=== PATIENT | female | born 1945 | race African-American/Black ===

== ENCOUNTER 2018-11-26 21:54 | Inpatient (IN) | payer OTHER ==
--- NOTE | 2018-11-26 22:56 | PDOC ---
History of Present Illness - General Chief Complaint: Edema Stated Complaint: FINGERS SWOLLEN & BLUE - History of Present Illness Initial Comments: The pt is a 73F w/ a reported history of anemia and dementia who presents from [facility] for evaluation of right hand/finger swelling. The history is limited as the pt is unable to provide a history and [facility], no one that is currently present is familiar with the patient. However per their reports, she was noted to have bluish fingers with some swelling. The pt reportedly fell 2 days ago and had a negative pelvis XR at that time. The [facility] supervisor garment manufacturing also reports that the pt was reportedly hypoxic to 90% on RA but is unsure of her baseline. PMH: Anemia, Dementia 11/26/18 22:55 Past History - Past Medical History Allergies/Adverse Reactions: Allergies Allergy/AdvReac Type Severity Reaction Status Date / Time No Known Drug Allergies Allergy Verified 11/27/18 01:37 Home Medications: Ambulatory Orders Cyanocobalamin (Vitamin B-12) [Cyanocobalamin Injection] 1,000 mcg IJ MONTHLY Ferrous Sulfate 325 mg PO DAILY 11/27/18 Mirtazapine 30 mg PO DAILY 11/27/18 Pantoprazole Sodium 40 mg PO DAILY 11/27/18 Polyethylene Glycol 3350 [Gavilax] 8.5 gm PO DAILY 11/27/18 - Suicide/Smoking/Psychosocial Hx Smoking History: Unknown if ever smoked Review of Systems - Review of Systems Able to Perform ROS?: No (2/2 medical condition) *Physical Exam - Vital Signs Last Vital Signs Temp Pulse Resp BP Pulse Ox 97.8 F 79 19 124/58 L 98 11/26/18 22:00 11/26/18 22:00 11/26/18 22:00 11/26/18 22:00 11/26/18 22:00 - Physical Exam Comments: GENERAL: Awake, not oriented HEAD: No signs of trauma, normocephalic, atraumatic EYES: PERRLA, EOMI, sclera anicteric, conjunctiva clear ENT: Hearing grossly normal, nares patent. Moist mucosa LUNGS: No distress, speaks full sentences, clear to auscultation bilaterally HEART: Regular rate and rhythm, normal S1 and S2, no murmurs appreciated, peripheral pulses normal and equal bilaterally EXTREMITIES: R index finger swelling w/o palpable deformity. L index finger w/ swelling (less than R) also w/o wound. Not warm to palpation. No wound observed on b/l hands. Pt w/ intact AROM of b/l wrist, MCP, PIP, DIP. Pt does not wince or withdraw to palpation of b/l hands NEUROLOGICAL: Cranial nerves II through XII grossly intact. Word salad, no focal sensorimotor deficits SKIN: Warm, Dry RECTAL: No gross blood on exam glove, tone intact 11/26/18 23:15 ED Treatment Course - LABORATORY CBC & Chemistry Diagram: 11/27/18 00:05 11/27/18 00:05 Medical Decision Making - Medical Decision Making The the pt is a 73F w/ a history of dementia and anemia who presents for evaluation of hand swelling and reported hypoxia Ddx: RA; less likely cellulitis as area not warm/tender; possible old foreign object; trauma ED Course Johnathon Lee contacted, spoke with registered nursing professor who reports she she is per-preston and no present staff is familiar w/ patient/baseline b/l hand/wrist XR 11/26/18 23:19 B/l hand XR w/ vascular calcifications; possible foreign object in R index finger, likely old as no wound present; no acute fx appreciated Pt not hypoxic in ED, SpO2 98% on RA 11/27/18 00:19 Anemia to 7.1 -Finding discussed w/ healthcare proxy. Risks and benefits of transfusion discussed and she consented for a blood transfusion. Consent verified by Rafi Chahal. -T/S and 1u pRBC ordered -FOBT sent 11/27/18 01:10 *DC/Admit/Observation/Transfer Diagnosis at time of Disposition: Bilateral hand swelling - Discharge Dispostion Condition at time of disposition: Stable Decision to Admit order: No - Referrals Referrals: Abby Banks MD [Primary Care Provider] - Todd Powell MD [Staff Physician] - - Patient Instructions Additional Instructions: You were seen in the Emergency Department for evaluation of hand swelling. You were prescribed Bactrim for the redness, take as directed. Review the handout provided at discharge. You should follow up with Rheumatology for evaluation of possible arthritis versus rheumatoid arthritis. Return to the Emergency Department if you develop fevers/chills, chest pain, nausea/vomiting, worsening redness/pain, or any new/concerning symptoms. Bactrim DS PO BID for 7 days. - Post Discharge Activity
--- NOTE | 2018-11-27 00:21 | PDOC ---
Documentation entered by Rebeka Mcdaniel SCRIBE, acting as scribe for Louisa Nevarez MD. Louisa Nevarez MD: This documentation has been prepared by the dayaibe, Rebeka Mcdaniel SCRIBE, under my direction and personally reviewed by me in its entirety. I confirm that the documentation accurately reflects all work, treatment, procedures, and medical decision making performed by me. Attending Attestation - Resident Resident Name: Justin Small - ED Attending Attestation I have performed the following: I have examined & evaluated the patient, The case was reviewed & discussed with the resident, I agree w/resident's findings & plan, Exceptions are as noted - HPI HPI: 11/26/18 23:31 The patient is a 73-year-old female with a past medical history significant for Alzheimers, GERD and dementia presents to the emergency department from [facility] via EMS with right-hand swelling. Per [facility] report, the patient was noted to have bluish fingers with some swelling to the right index finger and mild swelling to the left index finger. Per records, the patient suffered a fall about 2 days ago, with a negative hip X-ray. [facility] retail shift supervisor states the patient was found to be hypoxic on room air. History is limited due to dementia. - Physicial Exam PE: 11/27/18 00:16 awake alert head atraumatic. lungs clear bilaterally. heart rrr no mrg abd soft nt nd. ext wwp. bilat hand with bilat index finger and mcp swelling. no eccymosis., wwp. no warmth. 2 + radial / ulnar pulses. pulse ox 98% RA. - Medical Decision Making 11/27/18 00:17 73 yo f poor historian her with hand swelling s/p fall few days ago. nontenderness on exam. wwp. mild erythema and swelling at mcp, and bilat index fingers. speech garbled, hand examined no laceration, no foreign body. xray hand no traumatic injury. there is some foreign body on xray, but no skin injury tommy valdivia. pt exam nontender here. will tommy dc back to [facility]. differential includes arthritis, injury or continusion, infection less tommy will start on bactrim to cover due to concerns for redness and unclear history. labs sent. pending. pt not hypoxic here saturating 98% on RA. possibility of raynauds, RA. pt found to be severely anemic hgb 7.1 d/w pt health care proxy Monie who states pt is willing to have transfusion. due to recent fall. concerns for sxs anemia. will transfuse blood and admit observation. recommend outpt fu with rheumatology. 11/27/18 00:56 Monie Wise, pts health care proxy spoke with at 12:55 am. 11/27/18 01:48
[2018-11-27 00:27] LABS: BASO % 0.5 % (0-2.0); HEMOGLOBIN 7.1 GM/dL (10.7-15.3); LYMPH % 24.4 % (8-40); MCH 21.8 pg (25.7-33.7); MCHC 30.7 g/dl (32.0-36.0); MEAN CELL VOLUME 70.9 fl (80-96); MEAN PLT VOLUME 7.2 fl (7.5-11.1); MONO % 5.8 % (3.8-10.2); NEUT % 68.3 % (42.8-82.8); PLATELET COUNT 339 K/MM3 (134-434); RBC 3.24 M/mm3 (3.60-5.2); RDW 24.5 % (11.6-15.6); WHITE BLOOD COUNT 6.4 K/mm3 (4.0-10.0)
[2018-11-27 00:54] LABS: ALBUMIN 3.5 g/dl (3.4-5.0); ALK PHOS 91 U/L (45-117); ANION GAP 7 MMOL/L (8-16); BILIRUBIN,TOTAL 0.1 mg/dL (0.2-1); BLOOD UREA NITROGEN 35 mg/dL (7-18); CALCIUM 8.6 mg/dL (8.5-10.1); CHLORIDE 114 mmol/L (98-107); CO2 22 mmol/L (21-32); CREATININE 1.3 mg/dL (0.55-1.3); GLUCOSE,RANDOM 92 mg/dL (74-106); POTASSIUM 4.1 mmol/L (3.5-5.1); SGOT/AST 10 U/L (15-37); SGPT/ALT 16 U/L (13-61); SODIUM 143 mmol/L (136-145); TOT PROT 7.2 g/dl (6.4-8.2)
[2018-11-27] MEDS ORDERED: SULFAMETHOXAZOLE/TRIMETHOPRIM 800MG/160MG D.S. TABLET PO ONE (01:11)
[2018-11-27 01:55] LABS: ANISOCYTOSIS 2+
--- NOTE | 2018-11-27 02:12 | HP ---
CHIEF COMPLAINT: severe anemia, right hand swelling? PCP: Miguel History obtained from EMR and ER staff as patient has severe dementia HISTORY OF PRESENT ILLNESS: 73-year-old female sent from [facility] were she was noted to have bluish fingers with some swelling to the right index finger and mild swelling to the left index finger. In ER pt noted to have severe micorcytic anemia. ER course was notable for: (1) ekg (2) (3) Recent Travel: unknown PAST MEDICAL HISTORY: Alzheimers, GERD, dementia PAST SURGICAL HISTORY: unknown Social History: from [facility] Family History: unknown Allergies No Known Drug Allergies Allergy (Verified 11/27/18 01:37) HOME MEDICATIONS: Home Medications Medication Instructions Recorded Cyanocobalamin (Vitamin B-12) 1,000 mcg IJ MONTHLY 11/27/18 [Cyanocobalamin Injection] Ferrous Sulfate 325 mg PO DAILY 11/27/18 Mirtazapine 30 mg PO DAILY 11/27/18 Pantoprazole Sodium 40 mg PO DAILY 11/27/18 Polyethylene Glycol 3350 [Gavilax] 8.5 gm PO DAILY 11/27/18 REVIEW OF SYSTEMS - unable to obtain accurate ROS PHYSICAL EXAMINATION Vital Signs - 24 hr 11/26/18 22:00 Temperature 97.8 F Pulse Rate 79 Respiratory 19 Rate Blood Pressure 124/58 L O2 Sat by Pulse 98 Oximetry (%) GENERAL: Awake, alert, frail, NAD HEAD: Normal with no signs of trauma. EYES: b/l scleral pallor EARS, NOSE, THROAT: Ears normal, nares patent, oropharynx clear without exudates. Moist mucous membranes. NECK: Normal range of motion, supple without lymphadenopathy, JVD, or masses. LUNGS: Breath sounds equal, clear to auscultation bilaterally. No wheezes, and no crackles. No accessory muscle use. HEART: Regular rate and rhythm, normal S1 and S2 without murmur, rub or gallop. ABDOMEN: Soft, nontender, not distended, normoactive bowel sounds, no guarding, no rebound, no masses. MUSCULOSKELETAL: Normal range of motion at all joints. No bony deformities or tenderness. No CVA tenderness. UPPER EXTREMITIES: hands do not appear to have soft tissue swelling, tenderness , or evidence of trauma. Warm, radial pulses 2+ LOWER EXTREMITIES: 2+ pulses, warm, well-perfused. No calf tenderness. No peripheral edema. NEUROLOGICAL: dementia PSYCHIATRIC: uncooperative, severe dementia SKIN: pallor Laboratory Results - last 24 hr 11/27/18 11/27/18 00:05 00:05 WBC 6.4 RBC 3.24 L Hgb 7.1 L Hct 23.0 L MCV 70.9 L MCH 21.8 L MCHC 30.7 L RDW 24.5 H Plt Count 339 MPV 7.2 L Absolute Neuts (auto) 4.3 Neutrophils % 68.3 Lymphocytes % 24.4 Monocytes % 5.8 Eosinophils % 1.0 Basophils % 0.5 Nucleated RBC % 0 Hypochromia 2+ Anisocytosis 2+ Sodium 143 Potassium 4.1 Chloride 114 H Carbon Dioxide 22 Anion Gap 7 L BUN 35 H Creatinine 1.3 Creat Clearance w eGFR 40.15 Random Glucose 92 Calcium 8.6 Total Bilirubin 0.1 L AST 10 L ALT 16 Alkaline Phosphatase 91 Total Protein 7.2 Albumin 3.5 ASSESSMENT/PLAN: #73yo woman with severe symptomatic microcytic anemia. SHould r/o GI bleed. VS stable, not actively bleeding. -observation -iron, ferritin, vit b12 studies -transfuse 1 unit PRBC -obtain records from long term -ferrous sulfate -iv fluid hydration -FOBT -GI consult -ekg -cxr #SANDRA vs ckd- mild -iv fluid hydration -renal u/s -avoid nephrotoxins #Hx of right hand swelling? - no soft tissue swelling seen, no tenderness, no discoloration. -f/u official hand xray reports -esr -crp #dvt ppx -scds Visit type - Emergency Visit Emergency Visit: Yes ED Registration Date: 11/27/18 Care time: The patient presented to the Emergency Department on the above date and was hospitalized for further evaluation of their emergent condition. - New Patient This patient is new to me today: Yes Date on this admission: 11/27/18 - Critical Care Critical Care patient: No
[2018-11-27] MEDS ORDERED: SODIUM CHLORIDE 1,000 ML IV SCH (02:30)
[2018-11-27 08:14] LABS: BASO % 0.7 % (0-2.0); HEMATOCRIT 21.6 % (32.4-45.2); LYMPH % 30.2 % (8-40); MEAN CELL VOLUME 70.8 fl (80-96); MEAN PLT VOLUME 7.2 fl (7.5-11.1); MONO % 5.7 % (3.8-10.2); NEUT % 61.4 % (42.8-82.8); PLATELET COUNT 343 K/MM3 (134-434); RBC 3.04 M/mm3 (3.60-5.2); RDW 24.7 % (11.6-15.6); WHITE BLOOD COUNT 6.3 K/mm3 (4.0-10.0)
[2018-11-27 08:36] LABS: INR 0.96 (0.83-1.09); PROTHROMBIN TIME (PATIENT) 11.3 SEC (9.7-13.0)
[2018-11-27 08:37] LABS: ANION GAP 8 MMOL/L (8-16); BLOOD UREA NITROGEN 34 mg/dL (7-18); CALCIUM 8.7 mg/dL (8.5-10.1); CHLORIDE 113 mmol/L (98-107); CO2 25 mmol/L (21-32); CREATININE 1.2 mg/dL (0.55-1.3); GLUCOSE,RANDOM 67 mg/dL (74-106); SODIUM 146 mmol/L (136-145)
[2018-11-27 08:39] LABS: ACTIVATED PTT 32.5 SECONDS (25.2-36.5)
--- NOTE | 2018-11-27 08:54 | EKG ---
Test Reason : Blood Pressure : / mmHG Vent. Rate : 065 BPM Atrial Rate : 065 BPM P-R Int : 182 ms QRS Dur : 082 ms QT Int : 382 ms P-R-T Axes : 047 030 051 degrees QTc Int : 397 ms NORMAL SINUS RHYTHM SEPTAL INFARCT , AGE UNDETERMINED ABNORMAL ECG NO PREVIOUS ECGS AVAILABLE Confirmed by NIKO WOODWARD, TAMERA ([id number]) on 11/27/2018 8:53:55 AM Referred By: Confirmed By:TAMERA POPE MD
[2018-11-27 09:13] LABS: HEMOGLOBIN 6.7 GM/dL (10.7-15.3)
--- NOTE | 2018-11-27 09:14 | PN ---
Progress Note, Physician - Current Medication List Current Medications: Active Medications Ferrous Sulfate (Feosol -) 325 mg PO DAILY [facility] Sodium Chloride (Normal Saline -) 1,000 mls @ 50 mls/hr IV ASDIR ÁNGELA Stop: 11/28/18 02:22 Last Admin: 11/27/18 03:07 Dose: 50 mls/hr Mirtazapine (Remeron -) 30 mg PO HS [facility] - Objective Vital Signs: Vital Signs Temperature 97.2 F L 11/27/18 05:38 Pulse Rate 71 11/27/18 05:38 Respiratory Rate 18 11/27/18 05:38 Blood Pressure 127/64 11/27/18 05:38 O2 Sat by Pulse Oximetry (%) 98 11/27/18 05:00 Cardiovascular: Yes: S1, S2 Respiratory: Yes: Regular, CTA Bilaterally Gastrointestinal: Yes: Normal Bowel Sounds, Soft. No: Tenderness Edema: No Labs: CBC, BMP 11/27/18 07:20 11/27/18 07:20 INR, PTT INR 0.96 (0.83-1.09) 11/27/18 07:20 Problem List - Problems (1) GI bleed Assessment/Plan: TRANSFUSE PRBC FOLLOW LABS GI CONSULT PPI Code(s): K92.2 - GASTROINTESTINAL HEMORRHAGE, UNSPECIFIED (2) Anemia Assessment/Plan: SEE ABOVE Code(s): D64.9 - ANEMIA, UNSPECIFIED
[2018-11-27] MEDS ORDERED: FERROUS SO4 325 MG TABLET (FP) PO SCH (10:00)
--- NOTE | 2018-11-27 10:03 | CON.GI ---
Consult Consult Specialty:: GI - History of Present Illness History of Present Illness: 73 y/o F was transferred from [facility] because of respiratory insufficiency. In the ER she was noted be anemic. She also is receiving iron supplements . Unclear if patient has previous gi work-up. There were no reports of abdominal pain, melena, rectal bleeding and unexplained weight loss, - Alcohol/Substance Use Hx Alcohol Use: No - Smoking History Smoking history: Unknown if ever smoked Home Medications - Allergies Allergies/Adverse Reactions: Allergies Allergy/AdvReac Type Severity Reaction Status Date / Time No Known Drug Allergies Allergy Verified 11/27/18 01:37 - Home Medications Home Medications: Ambulatory Orders Cyanocobalamin (Vitamin B-12) [Cyanocobalamin Injection] 1,000 mcg IJ MONTHLY Ferrous Sulfate 325 mg PO DAILY 11/27/18 Mirtazapine 30 mg PO DAILY 11/27/18 Pantoprazole Sodium 40 mg PO DAILY 11/27/18 Polyethylene Glycol 3350 [Gavilax] 8.5 gm PO DAILY 11/27/18 Physical Exam-GI Vital Signs: Vital Signs Temperature 97.2 F L 11/27/18 05:38 Pulse Rate 71 11/27/18 05:38 Respiratory Rate 18 11/27/18 05:38 Blood Pressure 127/64 11/27/18 05:38 O2 Sat by Pulse Oximetry (%) 98 11/27/18 05:00 Constitutional: Yes: Well Nourished Eyes: Yes: Conjunctiva Clear HENT: Yes: Atraumatic Neck: Yes: Supple Cardiovascular: Yes: Regular Rate and Rhythm Respiratory: Yes: CTA Bilaterally ...Palpate: Yes: Soft. No: Firm/Rigid, Guarding, Hepatomegaly, Mass, Pulsatile Mass, Splenomegaly, Tenderness Labs: CBC, BMP 11/27/18 07:20 11/27/18 07:20 INR, PTT INR 0.96 (0.83-1.09) 11/27/18 07:20 Home Medications Medication Instructions Recorded Cyanocobalamin (Vitamin B-12) 1,000 mcg IJ MONTHLY 11/27/18 [Cyanocobalamin Injection] Ferrous Sulfate 325 mg PO DAILY 11/27/18 Mirtazapine 30 mg PO DAILY 11/27/18 Pantoprazole Sodium 40 mg PO DAILY 11/27/18 Polyethylene Glycol 3350 [Gavilax] 8.5 gm PO DAILY 11/27/18 Home Medication List Medication Instructions Recorded Confirmed Type Cyanocobalamin (Vitamin B-12) 1,000 mcg IJ MONTHLY 11/27/18 11/27/18 History [Cyanocobalamin Injection] Ferrous Sulfate 325 mg PO DAILY 11/27/18 11/27/18 History Mirtazapine 30 mg PO DAILY 11/27/18 11/27/18 History Pantoprazole Sodium 40 mg PO DAILY 11/27/18 11/27/18 History Polyethylene Glycol 3350 [Gavilax] 8.5 gm PO DAILY 11/27/18 11/27/18 History Active Medications Generic Name Dose Route Start Last Admin Trade Name Freq PRN Reason Stop Dose Admin Ferrous Sulfate 325 mg 11/27/18 10:00 Feosol - PO DAILY ÁNGELA Sodium Chloride 1,000 mls @ 50 mls/hr 11/27/18 02:30 11/27/18 03:07 Normal Saline - IV 11/28/18 02:22 50 mls/hr ASDIR ÁNGELA Administration Pantoprazole Sodium 80 mg/ 100 mls @ 10 mls/hr 11/27/18 09:45 Sodium Chloride IVPB Q10H ÁNGELA 8 MG/HR Mirtazapine 30 mg 11/27/18 22:00 Remeron - PO HS ÁNGELA Problem List - Problems (1) Anemia Assessment/Plan: r/o gi bleeding R> stool guaiac od x3 will need EGD and colonoscopy if not recently done Code(s): D64.9 - ANEMIA, UNSPECIFIED
[2018-11-27] MEDS: PANTOPRAZOLE SODIUM 80 MG in SODIUM CHLORIDE 100 ML IVPB SCH ×2 (10:58→18:47)
[2018-11-27] MEDS ORDERED: MIRTAZAPINE 15 MG TABLET (FP) ONE (21:18)
[2018-11-27] MEDS ORDERED: PT OWN MED DRAWER 7, Y5N ONE (21:20)
[2018-11-27] MEDS: MIRTAZAPINE 30 MG TABLET (FP) PO SCH (21:51)
[2018-11-28 05:11] LABS: SERUM IRON SATURATION 5 % (15-55); TOTAL IRON BINDING CAPACITY 325 ug/dL (250-450); UIBC 309 ug/dL (118-369)
[2018-11-28] MEDS: PANTOPRAZOLE SODIUM 80 MG in SODIUM CHLORIDE 100 ML IVPB SCH ×2 (06:29→19:19)
--- NOTE | 2018-11-28 07:39 | PN.GI ---
GI Progress Note Subjective: Patient is alert and awake but confused. As per RN no reports of vomiting, diarrhea, abdominal pain, or rectal bleeding. Labs from 11/27 07:20 show Hg 6.7, she is s/p 2U PRBC transfusion. Pending repeat Hg this morning. - Objective Vital Signs: Vital Signs Temperature 97.4 F L 11/28/18 06:51 Pulse Rate 52 L 11/28/18 06:51 Respiratory Rate 20 11/28/18 06:51 Blood Pressure 155/79 11/28/18 06:51 O2 Sat by Pulse Oximetry (%) 98 11/27/18 05:00 Constitutional: No Distress, Calm Eyes: Yes: Conjunctiva Clear HENT: Yes: Atraumatic Cardiovascular: Yes: Regular Rate and Rhythm Respiratory: Yes: Regular, CTA Bilaterally Gastrointestinal Inspection: Yes: WNL. No: Ascites, Distention, Hernia, Scars, Other ...Auscultate: Yes: Normoactive Bowel Sounds. No: Hyperactive Bowel Sounds, Hypoactive Bowel Sounds, No Bowel Sounds, Other ...Palpate: Yes: Soft. No: Firm/Rigid, Guarding, Hepatomegaly, Mass, Pulsatile Mass, Splenomegaly, Tenderness, Tenderness, Epigastium, Tenderness, Rebound, Other ...Percussion: Yes: Tympanitic. No: Dullness, Fluid Wave, Other Neurological: Yes: Alert, Confusion Psychiatric: Yes: Alert Labs: CBC, BMP 11/27/18 07:20 11/27/18 07:20 INR, PTT INR 0.96 (0.83-1.09) 11/27/18 07:20 Active Medications Generic Name Dose Route Start Last Admin Trade Name Tamar PRN Reason Stop Dose Admin Pantoprazole Sodium 80 mg/ 100 mls @ 10 mls/hr 11/27/18 09:45 11/28/18 06:29 Sodium Chloride IVPB 10 mls/hr Q10H ÁNGELA Administration 8 MG/HR Mirtazapine 30 mg 11/27/18 22:00 11/27/18 21:51 Remeron - PO 30 mg HS ÁNGELA Administration Problem List - Problems (1) Anemia Assessment/Plan: r/o gi bleeding R> stool guaiac od x3 continue pantoprazole drip monitor Hg and transfuse for Hg <8.0 will need EGD and colonoscopy if not recently done Code(s): D64.9 - ANEMIA, UNSPECIFIED
[2018-11-28 07:56] LABS: BASO % 0.5 % (0-2.0); EOS % 3.1 % (0-4.5); HEMATOCRIT 32.8 % (32.4-45.2); HEMOGLOBIN 10.6 GM/dL (10.7-15.3); LYMPH % 28.6 % (8-40); MCH 24.4 pg (25.7-33.7); MCHC 32.4 g/dl (32.0-36.0); MEAN CELL VOLUME 75.3 fl (80-96); MEAN PLT VOLUME 7.2 fl (7.5-11.1); MONO % 7.3 % (3.8-10.2); NEUT % 60.5 % (42.8-82.8); PLATELET COUNT 322 K/MM3 (134-434); RBC 4.35 M/mm3 (3.60-5.2); RDW 23.5 % (11.6-15.6); WHITE BLOOD COUNT 7.1 K/mm3 (4.0-10.0)
[2018-11-28 08:21] LABS: ALBUMIN 3.3 g/dl (3.4-5.0); ALK PHOS 89 U/L (45-117); ANION GAP 9 MMOL/L (8-16); BILIRUBIN,TOTAL 0.4 mg/dL (0.2-1); BLOOD UREA NITROGEN 20 mg/dL (7-18); CHLORIDE 112 mmol/L (98-107); CO2 25 mmol/L (21-32); CREATININE 1.2 mg/dL (0.55-1.3); GLUCOSE,RANDOM 73 mg/dL (74-106); POTASSIUM 3.9 mmol/L (3.5-5.1); SGOT/AST 11 U/L (15-37); SGPT/ALT 14 U/L (13-61); SODIUM 146 mmol/L (136-145); TOT PROT 6.7 g/dl (6.4-8.2)
--- NOTE | 2018-11-28 10:40 | PN ---
Progress Note, Physician Chief Complaint: Anemia History of Present Illness: Previous notes and events reviewed awake and alert, confused NAD Hg 10.3 after 2U PRBC transfusion mild edema noted to B/L hands with slight bluish tint at fingertips--good peripheral pulses B/L - Current Medication List Current Medications: Active Medications Ferrous Sulfate (Feosol -) 325 mg PO DAILY ON LICENSE OF [facility] Pantoprazole Sodium 80 mg/ (Sodium Chloride) 100 mls @ 10 mls/hr IVPB Q10H ON LICENSE OF [facility] Last Admin: 11/28/18 06:29 Dose: 10 mls/hr Mirtazapine (Remeron -) 30 mg PO HS ON LICENSE OF [facility] Last Admin: 11/27/18 21:51 Dose: 30 mg - Objective Vital Signs: Vital Signs Temperature 97.4 F L 11/28/18 06:51 Pulse Rate 52 L 11/28/18 06:51 Respiratory Rate 20 11/28/18 06:51 Blood Pressure 155/79 11/28/18 06:51 O2 Sat by Pulse Oximetry (%) 98 11/27/18 05:00 Constitutional: Yes: No Distress, Calm Eyes: Yes: Conjunctiva Clear HENT: Yes: Atraumatic Cardiovascular: Yes: Regular Rate and Rhythm Respiratory: Yes: Regular, Diminished Gastrointestinal: Yes: Normal Bowel Sounds, Soft Genitourinary: Yes: Incontinence Musculoskeletal: Yes: Muscle Weakness Extremities: Yes: Other (mild edema noted to B/L hands with slight bluish tint at fingertips--good peripheral pulses B/L) Edema: Yes (mild, b/l hands) Neurological: Yes: Alert, Confusion, Pre-Existing Deficit Psychiatric: Yes: Alert Labs: CBC, BMP 11/28/18 06:30 11/28/18 06:30 INR, PTT INR 0.96 (0.83-1.09) 11/27/18 07:20 Problem List - Problems (1) Anemia Assessment/Plan: -Hg 10.3 -monitor Hg daily -transfuse for Hg <8.0 -Stool OB neg Code(s): D64.9 - ANEMIA, UNSPECIFIED (2) Bilateral hand swelling Assessment/Plan: -Hand xrays reviewed -ESR, CRP Code(s): M79.89 - OTHER SPECIFIED SOFT TISSUE DISORDERS (3) GI bleed Assessment/Plan: -GI on board -monitor Hg Code(s): K92.2 - GASTROINTESTINAL HEMORRHAGE, UNSPECIFIED Assessment/Plan see problem list dvt ppx
[2018-11-28] MEDS: FERROUS SO4 325 MG TABLET (FP) PO SCH (12:51)
[2018-11-28] MEDS ORDERED: PT OWN MED DRAWER 7, Y5N ONE (19:00)
[2018-11-28] MEDS: MIRTAZAPINE 30 MG TABLET (FP) PO SCH (21:42)
[2018-11-29] MEDS: PANTOPRAZOLE SODIUM 80 MG in SODIUM CHLORIDE 100 ML IVPB SCH ×2 (05:45→16:11)
[2018-11-29 07:47] LABS: HEMOGLOBIN 11.9 GM/dL (10.7-15.3); MCH 24.4 pg (25.7-33.7); MCHC 32.1 g/dl (32.0-36.0); MEAN CELL VOLUME 75.9 fl (80-96); MEAN PLT VOLUME 6.9 fl (7.5-11.1); PLATELET COUNT 336 K/MM3 (134-434); RBC 4.87 M/mm3 (3.60-5.2); RDW 24.1 % (11.6-15.6); WHITE BLOOD COUNT 5.4 K/mm3 (4.0-10.0)
[2018-11-29 08:48] LABS: ALBUMIN 3.2 g/dl (3.4-5.0); ALK PHOS 92 U/L (45-117); ANION GAP 6 MMOL/L (8-16); BILIRUBIN,TOTAL 0.4 mg/dL (0.2-1); BLOOD UREA NITROGEN 15 mg/dL (7-18); CALCIUM 9.1 mg/dL (8.5-10.1); CHLORIDE 113 mmol/L (98-107); CO2 25 mmol/L (21-32); CREATININE 1.2 mg/dL (0.55-1.3); GLUCOSE,RANDOM 75 mg/dL (74-106); SGOT/AST 14 U/L (15-37); SGPT/ALT 14 U/L (13-61); SODIUM 144 mmol/L (136-145); TOT PROT 6.7 g/dl (6.4-8.2)
--- NOTE | 2018-11-29 08:56 | PN.GI ---
GI Progress Note Subjective: No reports from RN of nausea, vomiting, diarrhea, rectal bleeding or melena. Current labs show Hg 11.9. - Objective Vital Signs: Vital Signs Temperature 98.4 F 11/29/18 07:58 Pulse Rate 52 L 11/29/18 07:58 Respiratory Rate 20 11/29/18 07:58 Blood Pressure 119/72 11/29/18 07:58 O2 Sat by Pulse Oximetry (%) 98 11/28/18 21:00 Constitutional: No Distress, Calm Eyes: Yes: Conjunctiva Clear HENT: Yes: Atraumatic Cardiovascular: Yes: Regular Rate and Rhythm Respiratory: Yes: Regular, CTA Bilaterally Gastrointestinal Inspection: Yes: WNL. No: Ascites, Distention, Hernia, Scars, Other ...Auscultate: Yes: Normoactive Bowel Sounds. No: Hyperactive Bowel Sounds, Hypoactive Bowel Sounds, No Bowel Sounds, Other ...Palpate: Yes: Soft. No: Firm/Rigid, Guarding, Hepatomegaly, Mass, Pulsatile Mass, Splenomegaly, Tenderness, Tenderness, Epigastium, Tenderness, Rebound, Other ...Percussion: Yes: Tympanitic. No: Dullness, Fluid Wave, Other Neurological: Yes: Alert, Confusion Psychiatric: Yes: Alert Labs: CBC, BMP 11/29/18 06:30 11/29/18 06:30 INR, PTT INR 0.96 (0.83-1.09) 11/27/18 07:20 Active Medications Generic Name Dose Route Start Last Admin Trade Name Freq PRN Reason Stop Dose Admin Ferrous Sulfate 325 mg 11/28/18 10:00 11/28/18 12:51 Feosol - PO 325 mg DAILY ÁNGELA Administration Pantoprazole Sodium 80 mg/ 100 mls @ 10 mls/hr 11/27/18 09:45 11/29/18 05:45 Sodium Chloride IVPB Not Given Q10H ÁNGELA 8 MG/HR Mirtazapine 30 mg 11/27/18 22:00 11/28/18 21:42 Remeron - PO 30 mg HS ÁNGELA Administration Problem List - Problems (1) Anemia Assessment/Plan: r/o gi bleeding R> stool guaiac od x3 continue pantoprazole drip monitor Hg and transfuse for Hg <8.0 will have Endoscopy and Colonoscopy, after cleared by cardiology Code(s): D64.9 - ANEMIA, UNSPECIFIED
--- NOTE | 2018-11-29 09:56 | CON.CARD ---
Consult Consult Specialty:: Cardiology Referred by:: Robin Reason for Consultation:: edema, preop - History of Present Illness Chief Complaint: [place] History of Present Illness: The patient is a 73-year-old female with a past medical history significant for Alzheimers, GERD and dementia presents to the emergency department from [facility] via EMS with right-hand swelling. Per CT report, the patient was noted to have bluish fingers with some swelling to the right index finger and mild swelling to the left index finger. Per records, the patient suffered a fall about 2 days ago, with a negative hip X-ray. History is limited due to dementia. CXR kasia - History Source History Provided By: Medical Record - Alcohol/Substance Use Hx Alcohol Use: No - Smoking History Smoking history: Unknown if ever smoked Home Medications - Allergies Allergies/Adverse Reactions: Allergies Allergy/AdvReac Type Severity Reaction Status Date / Time No Known Drug Allergies Allergy Verified 11/27/18 01:37 - Home Medications Home Medications: Ambulatory Orders Cyanocobalamin (Vitamin B-12) [Cyanocobalamin Injection] 1,000 mcg IJ MONTHLY Ferrous Sulfate 325 mg PO DAILY 11/27/18 Mirtazapine 30 mg PO DAILY 11/27/18 Pantoprazole Sodium 40 mg PO DAILY 11/27/18 Polyethylene Glycol 3350 [Gavilax] 8.5 gm PO DAILY 11/27/18 Vital Signs: Vital Signs Temperature 98.4 F 11/29/18 07:58 Pulse Rate 52 L 11/29/18 07:58 Respiratory Rate 20 11/29/18 07:58 Blood Pressure 119/72 11/29/18 07:58 O2 Sat by Pulse Oximetry (%) 98 11/28/18 21:00 Constitutional: Yes: No Distress, Calm Eyes: Yes: Conjunctiva Clear HENT: Yes: Atraumatic, Normocephalic Neck: Yes: Trachea Midline Respiratory: Yes: CTA Bilaterally Gastrointestinal: Yes: Normal Bowel Sounds, Soft Cardiovascular: Yes: Regular Rate and Rhythm JVD: No Carotid Bruit: No PMI: Non-Displaced Heart Sounds: Yes: S1, S2 Murmur: Yes: Systolic Murmur, Grade 1 Extremities: Yes: Other (bluish rt fingers) Edema: No Peripheral Pulses WNL: Yes - Other Data Labs, Other Data: CBC, BMP 11/29/18 06:30 11/29/18 06:30 INR, PTT INR 0.96 (0.83-1.09) 11/27/18 07:20 Imaging - Results X-ray: Report Reviewed (kasia) EKG: Report Reviewed (nsr old septal MA) Other: Report Reviewed (hand xray neg) Assessment/Plan The patient is a 73-year-old female with a past medical history significant for Alzheimers, GERD and dementia presents to the emergency department from [facility] via EMS with right-hand swelling. Per CT report, the patient was noted to have bluish fingers with some swelling to the right index finger and mild swelling to the left index finger. Per records, the patient suffered a fall about 2 days ago, with a negative hip X-ray. History is limited due to dementia. Hand discoloration--Given the normal peripheral pulses this does not appear to be atherosclerotic large vessel vascular disease. would rule out microvascular, likely post traumatic. consiervative care. Anemia--transfuse as needed. There are no cardiac contraindications to EGD and/or colonoscopy if needed. Will follow as needed.
[2018-11-29] MEDS: FERROUS SO4 325 MG TABLET (FP) PO SCH (10:20)
[2018-11-29 10:22] LABS: ERYTHROCYTE SEDIMENTATION RATE 20 mm/hr (0-30)
[2018-11-29 12:09] VITALS: BMI 19.3
--- NOTE | 2018-11-29 14:29 | PN ---
Progress Note, Physician Chief Complaint: Anemia History of Present Illness: Previous notes and events reviewed awake and alert, confused NAD Hg 11.9 mild edema noted to B/L hands with slight bluish tint at fingertips--good peripheral pulses B/L - Current Medication List Current Medications: Active Medications Ferrous Sulfate (Feosol -) 325 mg PO DAILY [facility] Last Admin: 11/29/18 10:20 Dose: 325 mg Pantoprazole Sodium 80 mg/ (Sodium Chloride) 100 mls @ 10 mls/hr IVPB Q10H [facility] Last Admin: 11/29/18 05:45 Dose: Not Given Mirtazapine (Remeron -) 30 mg PO HS [facility] Last Admin: 11/28/18 21:42 Dose: 30 mg - Objective Vital Signs: Vital Signs Temperature 97.5 F L 11/29/18 11:00 Pulse Rate 54 L 11/29/18 11:00 Respiratory Rate 20 11/29/18 11:00 Blood Pressure 130/75 11/29/18 11:00 O2 Sat by Pulse Oximetry (%) 98 11/29/18 09:00 Constitutional: Yes: No Distress, Calm Eyes: Yes: Conjunctiva Clear HENT: Yes: Atraumatic Cardiovascular: Yes: Regular Rate and Rhythm Respiratory: Yes: Regular, CTA Bilaterally Gastrointestinal: Yes: Normal Bowel Sounds, Soft Genitourinary: Yes: Incontinence Musculoskeletal: Yes: Muscle Weakness Extremities: Yes: Cool (hands), Other (edema b/l hands) Edema: Yes (b/l hands) Neurological: Yes: Alert, Confusion, Pre-Existing Deficit Psychiatric: Yes: Alert Labs: CBC, BMP 11/29/18 06:30 11/29/18 06:30 INR, PTT INR 0.96 (0.83-1.09) 11/27/18 07:20 Problem List - Problems (1) Anemia Assessment/Plan: -Hg 11.9 -monitor Hg daily -transfuse for Hg <8.0 -Stool OB neg Code(s): D64.9 - ANEMIA, UNSPECIFIED (2) Bilateral hand swelling Assessment/Plan: -Hand xrays reviewed -ESR nl CRP 0.5 -vascular and cardiology consult -Doppler B/L upper extremity ordered Code(s): M79.89 - OTHER SPECIFIED SOFT TISSUE DISORDERS (3) GI bleed Assessment/Plan: -GI on board -monitor Hg -pantoprazole -patient will have endoscopy and colonoscopy tomorrow morning--NPO after midnight, cleared by cardiology Code(s): K92.2 - GASTROINTESTINAL HEMORRHAGE, UNSPECIFIED Assessment/Plan see problem list dvt ppx
[2018-11-29] MEDS ORDERED: MAGNESIUM CITRATE 300 ML BOTTLE PO ONE ×2 (14:48)
[2018-11-29] MEDS ORDERED: SODIUM PHOSPHATE/NA BIPHOS 133 ML ENEMA PR ONE (14:55)
[2018-11-29] MEDS: MIRTAZAPINE 30 MG TABLET (FP) PO SCH (21:16)
[2018-11-30 08:31] LABS: HEMATOCRIT 37.1 % (32.4-45.2); HEMOGLOBIN 11.8 GM/dL (10.7-15.3); MCH 24.3 pg (25.7-33.7); MCHC 31.9 g/dl (32.0-36.0); MEAN CELL VOLUME 76.2 fl (80-96); MEAN PLT VOLUME 7.1 fl (7.5-11.1); PLATELET COUNT 384 K/MM3 (134-434); RBC 4.87 M/mm3 (3.60-5.2); RDW 25.2 % (11.6-15.6); WHITE BLOOD COUNT 5.3 K/mm3 (4.0-10.0)
[2018-11-30 09:03] LABS: ALBUMIN 3.4 g/dl (3.4-5.0); ALK PHOS 101 U/L (45-117); ANION GAP 2 MMOL/L (8-16); BILIRUBIN,TOTAL 0.4 mg/dL (0.2-1); BLOOD UREA NITROGEN 15 mg/dL (7-18); CALCIUM 9.2 mg/dL (8.5-10.1); CHLORIDE 110 mmol/L (98-107); CO2 31 mmol/L (21-32); CREATININE 1.1 mg/dL (0.55-1.3); GLUCOSE,RANDOM 71 mg/dL (74-106); POTASSIUM 4.5 mmol/L (3.5-5.1); SGOT/AST 13 U/L (15-37); SGPT/ALT 17 U/L (13-61); SODIUM 143 mmol/L (136-145); TOT PROT 7.1 g/dl (6.4-8.2)
--- NOTE | 2018-11-30 09:19 | PN.GI ---
GI Progress Note Subjective: Patient is being prepped for endoscopy and colonoscopy. Still not completely clear. No reports of vomiting, rectal bleeding, melena. - Objective Vital Signs: Vital Signs Temperature 97.4 F L 11/30/18 06:35 Pulse Rate 66 11/30/18 06:35 Respiratory Rate 20 11/30/18 06:35 Blood Pressure 152/72 11/30/18 06:35 O2 Sat by Pulse Oximetry (%) 98 11/29/18 09:00 Constitutional: No Distress, Calm Eyes: Yes: Conjunctiva Clear HENT: Yes: Atraumatic Cardiovascular: Yes: Regular Rate and Rhythm Respiratory: Yes: Regular, CTA Bilaterally Gastrointestinal Inspection: Yes: WNL. No: Ascites, Distention, Hernia, Scars, Other ...Auscultate: Yes: Normoactive Bowel Sounds. No: Hyperactive Bowel Sounds, Hypoactive Bowel Sounds, No Bowel Sounds, Other ...Palpate: Yes: Soft. No: Firm/Rigid, Guarding, Hepatomegaly, Mass, Pulsatile Mass, Splenomegaly, Tenderness, Tenderness, Epigastium, Tenderness, Rebound, Other ...Percussion: Yes: Tympanitic. No: Dullness, Fluid Wave, Other Neurological: Yes: Alert, Confusion Labs: CBC, BMP 11/30/18 07:50 11/30/18 07:50 INR, PTT INR 0.96 (0.83-1.09) 11/27/18 07:20 Active Medications Generic Name Dose Route Start Last Admin Trade Name Freq PRN Reason Stop Dose Admin Lactulose 45 gm 11/30/18 09:30 Cephulac (Oral Use) PO 11/30/18 09:31 ONCE ONE Mirtazapine 30 mg 11/27/18 22:00 11/29/18 21:16 Remeron - PO 30 mg HS ÁNGELA Administration Pantoprazole Sodium 40 mg 11/30/18 10:00 Protonix - PO DAILY [facility] Problem List - Problems (1) Anemia Assessment/Plan: r/o gi bleeding R> stool guaiac od x3 continue pantoprazole drip monitor Hg and transfuse for Hg <8.0 will have Endoscopy and Colonoscopy, after cleared by cardiology Code(s): D64.9 - ANEMIA, UNSPECIFIED
[2018-11-30] MEDS ORDERED: LACTULOSE 20 GM/30 ML UDC (FOR ORAL USE ONLY) PO ONE (09:30)
[2018-11-30] MEDS ORDERED: PANTOPRAZOLE 40 MG TABLET (FP) PO SCH (10:00)
--- NOTE | 2018-11-30 10:12 | CONSULT ---
Consult - text type - Consultation Consultation Note: NEUROLOGY CONSULT GREATLY APPRECIATED: Events reviewed and discussed with nursing staff and ALICIA Wood. Currently on 1 :1 to monitor for safety. This 73 yo woman from [place]. PMH sig for anemia, GERD, dementia. On: ferrous sulfate, B12 1000 mcg IJ q mon., mirtazapine 30mg, pantoprazole. Here after reported R finger swelling and bluish discoloration. Xrays of hand/ wrist in ED neg. Reported fall 2 days ago while in facility. Found anemic with H/H 6.7/21.6 requiring transfusion. Pt is unable to provide history surrounding events. Says she sees a man wandering around. ESR 30 CRP 0.5 BS= 50-130s Iron 16 TIBC 325 Iron Sat- 5% Ferritin= 15.7 B12 =1653; Occult stool= neg FELIPE: Cor reg. Wearing diaper. Patient refuses most of the FELIPE and Neuro exam. NEURO: Awake, alert, tangential speech, appears to be talking to self. Does not follow commands. OX to name. No age. No location. Allows limited exam. Ambulates independently, flexed at waist. stride lengths preserved. Impression: Mod-Severe B/L cerebral dysfunction (OMS, chronic) R/O Toxic-Metabolic Encephalopathy Suggest: Order TSH, RPR, UA, C&S Monitor BS and H/H, may benefit from Ferrous Gluconate for severe iron anemia Head CT (C-) to r/o any traumatic complications of recent fall. Consider lowering of mirtazapine due to histaminergic effects Review drug history for possible Alzheimer's Rx (such as Donepezil) Low dose quetiapine (12.5-25 mg TID PRN and HS for agitation and insomnia. Arterial dopplers right arm to r/o ischemia Pt requires SNF level of care Thank you very much, Antonino Rodrigues MD
--- NOTE | 2018-11-30 11:19 | CONSULT ---
- Consultation REQUESTING PROVIDER: CONSULT REQUEST: We have been asked to surgically evaluate this patient for ( specify). PCP:Kate Rivera HISTORY OF PRESENT ILLNESS: HPI: The patient is a 73-year-old female with a past medical history significant for Alzheimers, GERD and dementia presents to the emergency department from [facility] via EMS with right-hand swelling. Per [place] report, the patient was noted to have bluish fingers with some swelling to the right index finger and mild swelling to the left index finger. Per records, the patient suffered a fall about 2 days ago, with a negative hip X-ray. [facility] supervisor record press states the patient was found to be hypoxic on room air. History is limited due to dementia. Nursing reports changes in color at finger tips has been off an on. PMHx: Alzheimers, GERD Dementia Home Medications Medication Instructions Recorded Cyanocobalamin (Vitamin B-12) 1,000 mcg IJ MONTHLY 11/27/18 [Cyanocobalamin Injection] Ferrous Sulfate 325 mg PO DAILY 11/27/18 Mirtazapine 30 mg PO DAILY 11/27/18 Pantoprazole Sodium 40 mg PO DAILY 11/27/18 Polyethylene Glycol 3350 [Gavilax] 8.5 gm PO DAILY 11/27/18 Allergies Allergy/AdvReac Type Severity Reaction Status Date / Time No Known Drug Allergies Allergy Verified 11/27/18 01:37 REVIEW OF SYSTEMS: unable to obtain PHYSICAL EXAM: GENERAL: Awake, alert, pleasantly demented, in no acute distress. HEAD: Normal with no signs of trauma. EYES: Sclera anicteric, conjunctiva clear. LUNGS: No auditory wheezes, No accessory muscle use. UPPER EXTREMITIES: B/L UE with no edema erythema or ecchymosis. no pain with PROM of elbow, wrist or fingers. b/l hands cool to touch with blueish color changes seen over tips of digits 2-4 extending from DIPs R>L. 2+ brachial, radial and ulnar pulses, Cap refill <2 seconds. No peripheral edema. NEUROLOGICAL: Normal speech, gait not observed. PSYCH: Cooperative. Good eye contact. Appropriate mood and affect. SKIN: Warm, dry, normal turgor, no rashes or lesions noted. Vital Signs Temperature 97.4 F L 11/30/18 10:00 Pulse Rate 90 11/30/18 10:00 Respiratory Rate 20 11/30/18 10:00 Blood Pressure 121/77 11/30/18 10:00 O2 Sat by Pulse Oximetry (%) 98 11/30/18 09:00 Lab Results WBC 5.3 K/mm3 (4.0-10.0) 11/30/18 07:50 RBC 4.87 M/mm3 (3.60-5.2) 11/30/18 07:50 Hgb 11.8 GM/dL (10.7-15.3) 11/30/18 07:50 Hct 37.1 % (32.4-45.2) 11/30/18 07:50 MCV 76.2 fl (80-96) L 11/30/18 07:50 MCHC 31.9 g/dl (32.0-36.0) L 11/30/18 07:50 RDW 25.2 % (11.6-15.6) H 11/30/18 07:50 Plt Count 384 K/MM3 (134-434) 11/30/18 07:50 Sodium 143 mmol/L (136-145) 11/30/18 07:50 Potassium 4.5 mmol/L (3.5-5.1) 11/30/18 07:50 Chloride 110 mmol/L (98-107) H 11/30/18 07:50 Carbon Dioxide 31 mmol/L (21-32) 11/30/18 07:50 Anion Gap 2 MMOL/L (8-16) L 11/30/18 07:50 BUN 15 mg/dL (7-18) 11/30/18 07:50 Creatinine 1.1 mg/dL (0.55-1.3) 11/30/18 07:50 Random Glucose 71 mg/dL (74-106) L 11/30/18 07:50 Calcium 9.2 mg/dL (8.5-10.1) 11/30/18 07:50 Blood Type O POSITIVE 11/27/18 04:13 Antibody Screen Negative 11/27/18 04:13 INR 0.96 (0.83-1.09) 11/27/18 07:20 X-Ray of B/L wrists and hands: diffuse OA changes throughout. Problem List - Problems (1) Cyanotic fingertip Assessment/Plan: Patient with color changes of B/l fingertips question of Raynauds/microvascualr dz with palpable pulses, no evidence for vascular intervention. 1) Medicine to start Calcium channel smiley for possible Raynauds 2) pain control 3) re-consult vascular PRN Evaluation and plan discussed with Dr Harrell. Code(s): R23.0 - CYANOSIS
[2018-11-30] MEDS ORDERED: POLYETHYLENE GLYCOL 3350 255 GM BTL PO ONE (14:07)
--- NOTE | 2018-11-30 15:16 | PN ---
Progress Note, Physician Chief Complaint: Anemia History of Present Illness: Previous notes and events reviewed awake and alert, confused NAD Hg 11.8 mild edema noted to B/L hands with slight bluish tint at fingertips--good peripheral pulses B/L patient is s/p endoscopy and flex-sigmoidoscopy - Current Medication List Current Medications: Active Medications Mirtazapine (Remeron -) 30 mg PO [facility] Last Admin: 11/29/18 21:16 Dose: 30 mg Pantoprazole Sodium (Protonix -) 40 mg PO DAILY [facility] Last Admin: 11/30/18 09:45 Dose: 40 mg Polyethylene Glycol (Miralax (For Bowel Prep) -) 255 gm PO ONCE ONE Stop: 12/01/18 14:09 - Objective Vital Signs: Vital Signs Temperature 97.5 F L 11/30/18 13:50 Pulse Rate 52 L 11/30/18 14:20 Respiratory Rate 12 11/30/18 14:20 Blood Pressure 128/68 11/30/18 14:20 O2 Sat by Pulse Oximetry (%) 100 11/30/18 14:20 Constitutional: Yes: No Distress, Calm Eyes: Yes: Conjunctiva Clear HENT: Yes: Atraumatic Cardiovascular: Yes: Regular Rate and Rhythm Respiratory: Yes: Regular, CTA Bilaterally Gastrointestinal: Yes: Soft Genitourinary: Yes: Incontinence Musculoskeletal: Yes: Muscle Weakness Extremities: Yes: WNL Edema: Yes (b/l hands) Integumentary: Yes: Other (erythema noted to R hand, bluidh) Neurological: Yes: Alert, Pre-Existing Deficit Psychiatric: Yes: Alert Labs: CBC, BMP 11/30/18 07:50 11/30/18 07:50 INR, PTT INR 0.96 (0.83-1.09) 11/27/18 07:20 Problem List - Problems (1) Anemia Assessment/Plan: -Hg 11.8 -monitor Hg daily -transfuse for Hg <8.0 -Stool OB neg -patient is s/p endoscopy and flex-sigmoidoscopy Code(s): D64.9 - ANEMIA, UNSPECIFIED (2) Bilateral hand swelling Assessment/Plan: -Hand xrays reviewed -ESR nl CRP 0.5 -vascular and cardiology consult -Doppler B/L upper extremity ordered Code(s): M79.89 - OTHER SPECIFIED SOFT TISSUE DISORDERS (3) GI bleed Assessment/Plan: -GI on board -monitor Hg -pantoprazole -s/p endoscopy and flex-sigmoidoscopy Code(s): K92.2 - GASTROINTESTINAL HEMORRHAGE, UNSPECIFIED Assessment/Plan see problem list dvt ppx
[2018-11-30] MEDS: MIRTAZAPINE 30 MG TABLET (FP) PO SCH (21:02)
[2018-12-01 08:21] LABS: HEMATOCRIT 35.4 % (32.4-45.2); HEMOGLOBIN 11.1 GM/dL (10.7-15.3); MCH 24.2 pg (25.7-33.7); MCHC 31.2 g/dl (32.0-36.0); MEAN CELL VOLUME 77.4 fl (80-96); MEAN PLT VOLUME 7.1 fl (7.5-11.1); PLATELET COUNT 349 K/MM3 (134-434); RBC 4.57 M/mm3 (3.60-5.2); RDW 25.7 % (11.6-15.6)
[2018-12-01 09:02] LABS: ALBUMIN 3.2 g/dl (3.4-5.0); BILIRUBIN,TOTAL 0.4 mg/dL (0.2-1); CALCIUM 8.8 mg/dL (8.5-10.1); CREATININE 1.3 mg/dL (0.55-1.3); POTASSIUM 4.3 mmol/L (3.5-5.1); TOT PROT 6.2 g/dl (6.4-8.2)
[2018-12-01] MEDS: PANTOPRAZOLE 40 MG TABLET (FP) PO SCH (10:05)
--- NOTE | 2018-12-01 13:09 | PN ---
Progress Note, Physician Chief Complaint: Anemia History of Present Illness: Previous notes and events reviewed awake and alert, confused NAD Hg 11.1 mild edema noted to B/L hands with slight bluish tint at fingertips--good peripheral pulses B/L patient is s/p endoscopy and flex-sigmoidoscopy flex-sig yesterday showed poor prep--patient is currently drinking miralax - Current Medication List Current Medications: Active Medications Amlodipine Besylate (Norvasc -) 2.5 mg PO DAILY [facility] Mirtazapine (Remeron -) 30 mg PO HS [facility] Last Admin: 11/30/18 21:02 Dose: 30 mg Pantoprazole Sodium (Protonix -) 40 mg PO DAILY [facility] Last Admin: 12/01/18 10:05 Dose: 40 mg Polyethylene Glycol (Miralax (For Bowel Prep) -) 255 gm PO ONCE ONE Stop: 12/01/18 14:09 - Objective Vital Signs: Vital Signs Temperature 97.3 F L 12/01/18 10:00 Pulse Rate 74 12/01/18 10:00 Respiratory Rate 18 12/01/18 10:00 Blood Pressure 115/66 12/01/18 10:00 O2 Sat by Pulse Oximetry (%) 100 11/30/18 14:20 Constitutional: Yes: No Distress, Calm Eyes: Yes: Conjunctiva Clear HENT: Yes: Atraumatic Cardiovascular: Yes: Regular Rate and Rhythm Respiratory: Yes: Regular, CTA Bilaterally Gastrointestinal: Yes: Normal Bowel Sounds, Soft Genitourinary: Yes: Incontinence Musculoskeletal: Yes: Muscle Weakness Extremities: Yes: WNL Edema: Yes (digits b/l hands) Neurological: Yes: Alert, Pre-Existing Deficit Psychiatric: Yes: Alert Labs: CBC, BMP 12/01/18 07:45 12/01/18 07:45 INR, PTT INR 0.96 (0.83-1.09) 11/27/18 07:20 Problem List - Problems (1) Anemia Assessment/Plan: -Hg 11.1 -monitor Hg daily -transfuse for Hg <8.0 -Stool OB neg -patient is s/p endoscopy and flex-sigmoidoscopy Code(s): D64.9 - ANEMIA, UNSPECIFIED (2) Bilateral hand swelling Assessment/Plan: -Hand xrays reviewed -ESR nl CRP 0.5 -vascular and cardiology consult -Doppler B/L upper extremity ordered -will start Norvasc 2.5mg daily Code(s): M79.89 - OTHER SPECIFIED SOFT TISSUE DISORDERS (3) GI bleed Assessment/Plan: -GI on board -monitor Hg -pantoprazole -s/p endoscopy and flex-sigmoidoscopy Code(s): K92.2 - GASTROINTESTINAL HEMORRHAGE, UNSPECIFIED (4) Raynaud disease Assessment/Plan: -start on norvasc 2.5mg daily Code(s): I73.00 - RAYNAUD'S SYNDROME WITHOUT GANGRENE Assessment/Plan see problem list dvt ppx
[2018-12-01] MEDS ORDERED: POLYETHYLENE GLYCOL 3350 255 GM BTL PO ONE (14:08)
[2018-12-01] MEDS: MIRTAZAPINE 30 MG TABLET (FP) PO SCH (21:08)
[2018-12-02 06:43] LABS: HEMATOCRIT 34.8 % (32.4-45.2); HEMOGLOBIN 10.8 GM/dL (10.7-15.3); MCH 24.2 pg (25.7-33.7); MCHC 31.1 g/dl (32.0-36.0); MEAN CELL VOLUME 77.6 fl (80-96); MEAN PLT VOLUME 7.1 fl (7.5-11.1); PLATELET COUNT 360 K/MM3 (134-434); RBC 4.48 M/mm3 (3.60-5.2); RDW 26.1 % (11.6-15.6); WHITE BLOOD COUNT 5.5 K/mm3 (4.0-10.0)
[2018-12-02 07:31] LABS: BILIRUBIN,TOTAL 0.4 mg/dL (0.2-1); CALCIUM 8.8 mg/dL (8.5-10.1); CREATININE 1.1 mg/dL (0.55-1.3); POTASSIUM 4.1 mmol/L (3.5-5.1); TOT PROT 5.9 g/dl (6.4-8.2)
[2018-12-02] MEDS ORDERED: amLODIPine BESYLATE 2.5 MG TABLET (FP) PO SCH (10:00)
[2018-12-02] MEDS: PANTOPRAZOLE 40 MG TABLET (FP) PO SCH (10:23)
--- NOTE | 2018-12-02 13:06 | DS ---
Physical Examination Vital Signs: Vital Signs Temperature 97.3 F L 12/02/18 11:00 Pulse Rate 49 L 12/02/18 11:00 Respiratory Rate 18 12/02/18 11:00 Blood Pressure 141/76 12/02/18 11:00 O2 Sat by Pulse Oximetry (%) 100 12/02/18 08:50 Findings/Remarks: Patient is a 73 y/o female sent to ER for severe anemia and bluish tint and swelling to digits s/p fall in detention. Constitutional: Yes: No Distress, Calm Eyes: Yes: Conjunctiva Clear HENT: Yes: Atraumatic Cardiovascular: Yes: Regular Rate and Rhythm Respiratory: Yes: Regular, CTA Bilaterally Gastrointestinal: Yes: Soft Renal/: Yes: Incontinence Musculoskeletal: Yes: Muscle Weakness Extremities: Yes: WNL Edema: No Neurological: Yes: Alert, Pre-Existing Deficit Psychiatric: Yes: Alert Labs: CBC, BMP 12/02/18 05:30 12/02/18 05:30 Discharge Summary Reason For Visit: DEMENTIA/SWELLING OF HAND/SENCONDARY ANEMIA Current Active Problems Anemia (Acute) Bilateral hand swelling (Acute) Cyanotic fingertip (Acute) GI bleed (Acute) Raynaud disease (Acute) Procedures: Principal: Endoscopy and Colonoscopy Hospital Course: see progress notes Laboratory Tests 11/27/18 11/27/18 11/27/18 00:05 00:05 02:00 WBC 6.4 RBC 3.24 L Hgb 7.1 L Hct 23.0 L MCV 70.9 L MCH 21.8 L MCHC 30.7 L RDW 24.5 H Plt Count 339 MPV 7.2 L Absolute Neuts (auto) 4.3 Neutrophils % 68.3 Lymphocytes % 24.4 Monocytes % 5.8 Eosinophils % 1.0 Basophils % 0.5 Nucleated RBC % 0 Hypochromia 2+ Anisocytosis 2+ ESR PT with INR INR PTT (Actin FS) Sodium 143 Potassium 4.1 Chloride 114 H Carbon Dioxide 22 Anion Gap 7 L BUN 35 H Creatinine 1.3 Creat Clearance w eGFR 40.15 Est GFR (CKD-EPI)AfAm Est GFR (CKD-EPI)NonAf POC Glucometer Random Glucose 92 Calcium 8.6 Iron TIBC Iron Saturation Ferritin Total Bilirubin 0.1 L AST 10 L ALT 16 Alkaline Phosphatase 91 C-Reactive Protein Total Protein 7.2 Albumin 3.5 Vitamin B12 TSH Stool Occult Blood Negative RPR Titer Blood Type Antibody Screen Crossmatch 11/27/18 11/27/18 11/27/18 02:05 04:13 07:20 WBC 6.3 RBC 3.04 L Hgb 6.7 L* Hct 21.6 L MCV 70.8 L MCH 22.0 L MCHC 31.0 L RDW 24.7 H Plt Count 343 MPV 7.2 L Absolute Neuts (auto) 3.9 Neutrophils % 61.4 Lymphocytes % 30.2 D Monocytes % 5.7 Eosinophils % 2.0 D Basophils % 0.7 Nucleated RBC % 0 Hypochromia Anisocytosis ESR PT with INR INR PTT (Actin FS) Sodium Potassium Chloride Carbon Dioxide Anion Gap BUN Creatinine Creat Clearance w eGFR Est GFR (CKD-EPI)AfAm Est GFR (CKD-EPI)NonAf POC Glucometer Random Glucose Calcium Iron TIBC Iron Saturation Ferritin Total Bilirubin AST ALT Alkaline Phosphatase C-Reactive Protein Total Protein Albumin Vitamin B12 TSH Stool Occult Blood RPR Titer Blood Type O POSITIVE O POSITIVE Antibody Screen Negative Negative Crossmatch See Detail 11/27/18 11/27/18 11/27/18 07:20 07:20 07:20 WBC RBC Hgb Hct MCV MCH MCHC RDW Plt Count MPV Absolute Neuts (auto) Neutrophils % Lymphocytes % Monocytes % Eosinophils % Basophils % Nucleated RBC % Hypochromia Anisocytosis ESR PT with INR 11.30 INR 0.96 PTT (Actin FS) 32.5 Sodium 146 H Potassium 4.0 Chloride 113 H Carbon Dioxide 25 Anion Gap 8 BUN 34 H Creatinine 1.2 Creat Clearance w eGFR 44.04 Est GFR (CKD-EPI)AfAm Est GFR (CKD-EPI)NonAf POC Glucometer Random Glucose 67 L Calcium 8.7 Iron 16 L TIBC 325 Iron Saturation 5 L Ferritin 15.7 Total Bilirubin AST ALT Alkaline Phosphatase C-Reactive Protein Total Protein Albumin Vitamin B12 1653 H TSH Stool Occult Blood RPR Titer Blood Type Antibody Screen Crossmatch 11/27/18 11/27/18 11/27/18 11:35 12:11 13:55 WBC RBC Hgb Hct MCV MCH MCHC RDW Plt Count MPV Absolute Neuts (auto) Neutrophils % Lymphocytes % Monocytes % Eosinophils % Basophils % Nucleated RBC % Hypochromia Anisocytosis ESR PT with INR INR PTT (Actin FS) Sodium Potassium Chloride Carbon Dioxide Anion Gap BUN Creatinine Creat Clearance w eGFR Est GFR (CKD-EPI)AfAm Est GFR (CKD-EPI)NonAf POC Glucometer 54 66 90 Random Glucose Calcium Iron TIBC Iron Saturation Ferritin Total Bilirubin AST ALT Alkaline Phosphatase C-Reactive Protein Total Protein Albumin Vitamin B12 TSH Stool Occult Blood RPR Titer Blood Type Antibody Screen Crossmatch 11/27/18 11/27/18 11/28/18 17:35 22:50 06:30 WBC 7.1 RBC 4.35 Hgb 10.6 L Hct 32.8 D MCV 75.3 L MCH 24.4 L D MCHC 32.4 RDW 23.5 H Plt Count 322 MPV 7.2 L Absolute Neuts (auto) 4.3 Neutrophils % 60.5 Lymphocytes % 28.6 Monocytes % 7.3 Eosinophils % 3.1 Basophils % 0.5 Nucleated RBC % 0 Hypochromia Anisocytosis ESR PT with INR INR PTT (Actin FS) Sodium Potassium Chloride Carbon Dioxide Anion Gap BUN Creatinine Creat Clearance w eGFR Est GFR (CKD-EPI)AfAm Est GFR (CKD-EPI)NonAf POC Glucometer 72 74 Random Glucose Calcium Iron TIBC Iron Saturation Ferritin Total Bilirubin AST ALT Alkaline Phosphatase C-Reactive Protein Total Protein Albumin Vitamin B12 TSH Stool Occult Blood RPR Titer Blood Type Antibody Screen Crossmatch 11/28/18 11/28/18 11/28/18 06:30 06:33 12:26 WBC RBC Hgb Hct MCV MCH MCHC RDW Plt Count MPV Absolute Neuts (auto) Neutrophils % Lymphocytes % Monocytes % Eosinophils % Basophils % Nucleated RBC % Hypochromia Anisocytosis ESR PT with INR INR PTT (Actin FS) Sodium 146 H Potassium 3.9 Chloride 112 H Carbon Dioxide 25 Anion Gap 9 BUN 20 H Creatinine 1.2 Creat Clearance w eGFR 44.04 Est GFR (CKD-EPI)AfAm Est GFR (CKD-EPI)NonAf POC Glucometer 73 133 Random Glucose 73 L Calcium 9.0 Iron TIBC Iron Saturation Ferritin Total Bilirubin 0.4 AST 11 L ALT 14 Alkaline Phosphatase 89 C-Reactive Protein Total Protein 6.7 Albumin 3.3 L Vitamin B12 TSH Stool Occult Blood RPR Titer Blood Type Antibody Screen Crossmatch 11/28/18 11/29/18 11/29/18 18:19 06:30 06:30 WBC 5.4 RBC 4.87 Hgb 11.9 Hct 37.0 MCV 75.9 L MCH 24.4 L MCHC 32.1 RDW 24.1 H Plt Count 336 MPV 6.9 L Absolute Neuts (auto) Neutrophils % Lymphocytes % Monocytes % Eosinophils % Basophils % Nucleated RBC % Hypochromia Anisocytosis ESR 20 PT with INR INR PTT (Actin FS) Sodium 144 Potassium 4.0 Chloride 113 H Carbon Dioxide 25 Anion Gap 6 L BUN 15 Creatinine 1.2 Creat Clearance w eGFR 44.04 Est GFR (CKD-EPI)AfAm Est GFR (CKD-EPI)NonAf POC Glucometer 55 Random Glucose 75 Calcium 9.1 Iron TIBC Iron Saturation Ferritin Total Bilirubin 0.4 AST 14 L ALT 14 Alkaline Phosphatase 92 C-Reactive Protein 0.5 H Total Protein 6.7 Albumin 3.2 L Vitamin B12 TSH Stool Occult Blood RPR Titer Blood Type Antibody Screen Crossmatch 11/30/18 11/30/18 11/30/18 07:50 07:50 21:29 WBC 5.3 RBC 4.87 Hgb 11.8 Hct 37.1 MCV 76.2 L MCH 24.3 L MCHC 31.9 L RDW 25.2 H Plt Count 384 MPV 7.1 L Absolute Neuts (auto) Neutrophils % Lymphocytes % Monocytes % Eosinophils % Basophils % Nucleated RBC % Hypochromia Anisocytosis ESR PT with INR INR PTT (Actin FS) Sodium 143 Potassium 4.5 Chloride 110 H Carbon Dioxide 31 Anion Gap 2 L BUN 15 Creatinine 1.1 Creat Clearance w eGFR 48.69 Est GFR (CKD-EPI)AfAm Est GFR (CKD-EPI)NonAf POC Glucometer 77 Random Glucose 71 L Calcium 9.2 Iron TIBC Iron Saturation Ferritin Total Bilirubin 0.4 AST 13 L ALT 17 Alkaline Phosphatase 101 C-Reactive Protein Total Protein 7.1 Albumin 3.4 Vitamin B12 TSH Stool Occult Blood RPR Titer Blood Type Antibody Screen Crossmatch 12/01/18 12/01/18 12/01/18 07:45 07:45 07:45 WBC 10.0 RBC 4.57 Hgb 11.1 Hct 35.4 MCV 77.4 L MCH 24.2 L MCHC 31.2 L RDW 25.7 H Plt Count 349 MPV 7.1 L Absolute Neuts (auto) Neutrophils % Lymphocytes % Monocytes % Eosinophils % Basophils % Nucleated RBC % Hypochromia Anisocytosis ESR PT with INR INR PTT (Actin FS) Sodium 143 Potassium 4.3 Chloride 108 H Carbon Dioxide 31 Anion Gap 3 L BUN 13 Creatinine 1.3 Creat Clearance w eGFR Est GFR (CKD-EPI)AfAm 47.13 Est GFR (CKD-EPI)NonAf 40.67 POC Glucometer Random Glucose 72 L Calcium 8.8 Iron TIBC Iron Saturation Ferritin Total Bilirubin 0.4 AST 13 L ALT 13 Alkaline Phosphatase 94 C-Reactive Protein Total Protein 6.2 L Albumin 3.2 L Vitamin B12 TSH 0.71 Stool Occult Blood RPR Titer Nonreactive Blood Type Antibody Screen Crossmatch 12/02/18 12/02/18 05:30 05:30 WBC 5.5 RBC 4.48 Hgb 10.8 Hct 34.8 MCV 77.6 L MCH 24.2 L MCHC 31.1 L RDW 26.1 H Plt Count 360 MPV 7.1 L Absolute Neuts (auto) Neutrophils % Lymphocytes % Monocytes % Eosinophils % Basophils % Nucleated RBC % Hypochromia Anisocytosis ESR PT with INR INR PTT (Actin FS) Sodium 141 Potassium 4.1 Chloride 107 Carbon Dioxide 30 Anion Gap 4 L BUN 11 Creatinine 1.1 Creat Clearance w eGFR Est GFR (CKD-EPI)AfAm 57.68 Est GFR (CKD-EPI)NonAf 49.77 POC Glucometer Random Glucose 69 L Calcium 8.8 Iron TIBC Iron Saturation Ferritin Total Bilirubin 0.4 AST 13 L ALT 14 Alkaline Phosphatase 90 C-Reactive Protein Total Protein 5.9 L Albumin 3.0 L Vitamin B12 TSH Stool Occult Blood RPR Titer Blood Type Antibody Screen Crossmatch Active Medications Generic Name Dose Route Start Last Admin Trade Name Freq PRN Reason Stop Dose Admin Amlodipine Besylate 2.5 mg 12/03/18 10:00 Norvasc - PO DAILY ÁNGELA Mirtazapine 15 mg 12/02/18 22:00 Remeron - PO HS ÁNGELA Quetiapine Fumarate 12.5 mg 12/02/18 22:00 Seroquel - PO HS ÁNGELA Condition: Stable - Instructions Diet, Activity, Other Instructions: Follow up with pmd monitor CBC twice a week continue with current med regimen return to ER if develop respiratory distress, chest pain, rectal bleeding or Hg <8.0 Disposition: [facility] FACILITY - Home Medications Comprehensive Discharge Medication List: Ambulatory Orders Cyanocobalamin (Vitamin B-12) [Cyanocobalamin Injection] 1,000 mcg IJ MONTHLY Ferrous Sulfate 325 mg PO DAILY 11/27/18 Pantoprazole Sodium 40 mg PO DAILY 11/27/18 Polyethylene Glycol 3350 [Gavilax] 8.5 gm PO DAILY 11/27/18 Amlodipine Besylate [Norvasc -] 2.5 mg PO DAILY #30 tablet 12/02/18 Mirtazapine [Remeron -] 15 mg PO DAILY tablet 12/02/18 Pantoprazole Sodium [Protonix -] 40 mg PO DAILY tablet.ec 12/02/18 Quetiapine Fumarate [Seroquel -] 12.5 mg PO HS tablet 12/02/18
[2018-12-02 15:41] LABS: PH,URINE 5.5 (5.0-8.0); URINE APPEARANCE CLOUDY; URINE BACTERIA 1089.4 /hpf (NEGATIVE); URINE BILIRUBIN NEGATIVE (NEGATIVE); URINE CASTS 2 /lpf (0-8); URINE COLOR YELLOW; URINE GLUCOSE (UA) NEGATIVE (NEGATIVE); URINE KETONE NEGATIVE (NEGATIVE); URINE LEUK ESTERASE 3+ (NEGATIVE); URINE NITRITE NEGATIVE (NEGATIVE); URINE PROTEIN NEGATIVE (NEGATIVE); URINE RBC 6 /hpf (0-4); URINE UROBILINOGEN 0.2 mg/dL (0.2-1.0); URINE WBC 539 /hpf (0-5)
--- NOTE | 2018-12-02 17:08 | PN ---
Progress Note (short form) - Note Progress Note: NEUROLOGY PROGRESS: Events reviewed and discussed with nursing staff, OLGA Marsh and ALICIA Wood. Currently on 1:1 to monitor for safety. Received quetiapine 12.5 mg qhs. Today, calmer and sitting in wheelchair. Reports still seeing man occasionally. Hands remain cold and discolored; started on amlodipine 2.5 mg daily. Patient had venous, NOT arterial dopplers Doppler of left arm neg for DVT; unable to test right arm CT of head C- (reviewed): Mod atrophy with ex vacuo ventricular dilation. Chronic periventricular ischemic changes. Urine WBC= 539 TSH= 0.71 RPR nonreactive FELIPE: P40s. BS 60s. Wearing diaper. Patient refuses most of FELIPE and Neuro exam. Fingertips of hands bluish discoloration and cold to the touch. NEURO: Awake, alert, tangential speech. Does not follow commands. OX to name. States "at home." Allows limited exam. Impression: Mod-Severe B/L cerebral dysfunction (OMS, chronic) worsened by Toxic -Metabolic Encephalopathy (UTI) Suggest: Rx for UTI and hydration Severe Iron anemia may be contributing factor to coldness in hands ; may benefit from ferrous gluconate. GI workup in progress. Review drug history for possible Alzheimer's Rx (such as Donepezil) Pt requires SNF level of care Thank you very much, Antonino Rodrigues MD
[2018-12-02] MEDS ORDERED: NITROFURANTOIN MACROCRYSTAL 50 MG CAPSULE (FP) PO SCH (18:00)
[2018-12-02] MEDS: CIPROFLOXACIN 500 MG TABLET (RESTRICTED TO ID) PO SCH (21:01)
[2018-12-02] MEDS ORDERED: MIRTAZAPINE 15 MG TABLET (FP) PO SCH (22:00)
[2018-12-02] MEDS ORDERED: MIRTAZAPINE 30 MG TABLET (FP) PO SCH (22:00)
[2018-12-02] MEDS ORDERED: QUEtiapine FUMARATE 25 MG TABLET (FP) PO SCH (22:00)
[2018-12-03] MEDS ORDERED: amLODIPine BESYLATE 2.5 MG TABLET (FP) PO SCH ×2 (10:00)
[2018-12-03] MEDS ORDERED: PANTOPRAZOLE 40 MG TABLET (FP) PO SCH (10:00)
[2018-12-03] MEDS: CIPROFLOXACIN 500 MG TABLET (RESTRICTED TO ID) PO SCH (10:04)
[2018-12-03 14:30] VITALS: BP 128/70; PULSE 87; TEMP 97.4
--- NOTE | 2018-12-06 13:06 | PATH ---
Surgical Pathology Report Patient Name: EMIL DE LOS SANTOS Med. Rec. #: [id number] /Age/Gender: 1945 (Age: 73) / F Account: [id number] Location: [facility] MED/SURG Taken: 12/01/2018 Received: 12/01/2018 Reported: 12/04/2018 Physicians: Cait Cortez M.D. Specimen(s) Received GASTRIC BODY Clinical History Anemia, GI bleeding Final Diagnosis GASTRIC BODY, BIOPSY: GASTRIC MUCOSA WITH MILD CHRONIC GASTRITIS. IMMUNOSTAIN FOR H. PYLORI IS NEGATIVE. NEGATIVE FOR INTESTINAL METAPLASIA. Electronically Signed Donnie Olivo M.D. Gross Description Received in formalin, labeled "biopsy gastric body" are 2 rodriguez, irregular portions of soft tissue measuring 0.4 x 0.4 x 0.1 cm in aggregate. The specimen is submitted in toto in one cassette. YANIV/12/01/2018 sera/12/01/2018
--- NOTE | 2018-12-06 13:08 | PATH ---
Surgical Pathology Report Patient Name: EMIL DE LOS SANTOS Med. Rec. #: [id number] /Age/Gender: 1945 (Age: 73) / F Account: [id number] Location: [facility] MED/SURG Taken: 12/02/2018 Received: 12/02/2018 Reported: 12/05/2018 Physicians: Cait Cortez M.D. Specimen(s) Received RECTAL POLYP Clinical History Anemia, rectal bleeding Postoperative diagnosis: Redundant sigmoid, diverticulosis left colon, rectal polyps Final Diagnosis RECTUM, POLYPS, POLYPECTOMY: TUBULAR ADENOMA(S). Electronically Signed Marlene Rivers M.D. Gross Description Received in formalin, labeled "rectum polyps" are 5 rodriguez, irregular portions of soft tissue ranging in size from 0.1-0.5 cm. in greatest dimension. The specimens are submitted in toto in one cassette. MLSZ/12/02/2018 sanqiana/12/02/2018
== END 2018-12-03 14:30 | DRG 377 ==
LOC: JER 21:54 → JERBED 11-27 02:12 → J8W 11-27 04:40 → OBSVTOIN 11-27 09:08
PROVIDERS: ADMIT Family Medicine; ATTEND Family Medicine
PROC: 0DB68ZX Excision of Stomach, Via Natural or Artificial Opening Endoscopic, Diagnostic (ICD-10-PCS; principal; 2018-11-30 13:00)
PROC: 0DBP8ZX Excision of Rectum, Via Natural or Artificial Opening Endoscopic, Diagnostic (ICD-10-PCS; 2018-12-02)
DX: K92.2 Gastrointestinal hemorrhage, unspecified (principal); G92 Toxic encephalopathy; N39.0 Urinary tract infection, site not specified; K21.9 Gastro-esophageal reflux disease without esophagitis; G30.9 Alzheimer's disease, unspecified; F02.80 Dementia in other diseases classified elsewhere, unspecified severity, without behavioral disturbance, psychotic disturbance, mood disturbance, and anxiety; D50.9 Iron deficiency anemia, unspecified; M79.89 Other specified soft tissue disorders; R23.0 Cyanosis; K44.9 Diaphragmatic hernia without obstruction or gangrene; I73.00 Raynaud's syndrome without gangrene; K55.20 Angiodysplasia of colon without hemorrhage; K62.1 Rectal polyp; K57.30 Diverticulosis of large intestine without perforation or abscess without bleeding
CPT/HCPCS: 36415; 36430; 70450-TC; 71045-TC-FY; 73110-TC-LT-FY; 73110-TC-RT-FY; 73130-TC-LT-FY; 73130-TC-RT-FY; 80048; 80053; 81003; 82272; 82607; 82728; 82962; 83540; 83550; 84443; 85025; 85027; 85610; 85651; 85730; 86140; 86593; 86850; 86900; 86901; 86922; 88305-TC; 93005; 93010; 93970-TC; 99282-25; G0378; J7030; P9038; P9058